=== PATIENT | female | born 1935 | race Caucasian/White ===

== ENCOUNTER 2016-11-16 19:05 | Inpatient (IN) | payer MEDICARE, OTHER ==
[~2016-11-16] VITALS: Ht 160 cm; Wt 67.1 kg
[2016-11-16] MEDS ORDERED: QUET50TA14 PO (19:45)
[2016-11-16] MEDS ORDERED: ACET-2154 PO (19:45)
[2016-11-16] MEDS ORDERED: MAG355OR18 PO (19:45)
[2016-11-16] MEDS ORDERED: CHOL500062 PO (19:45)
[2016-11-16] MEDS ORDERED: LAMO200T2 PO (19:45)
[2016-11-16] MEDS ORDERED: ESCI5TAB PO (19:45)
[2016-11-16] MEDS ORDERED: PHEN100C4 PO (19:45)
[2016-11-16] MEDS ORDERED: CALC-20 PO (19:45)
[2016-11-16] MEDS ORDERED: MAGN400O6 PO (19:45)
[2016-11-16] MEDS ORDERED: TRAZ-144 PO (19:45)
[2016-11-16] MEDS ORDERED: OMEG1CAP23 PO (19:45)
[2016-11-16 19:55] LABS: BASOPHILS # (AUTO) 0.1 K/uL (0.0-8.0); BASOPHILS % (AUTO) 1.4 % (0.0-2.0); EOSINOPHILS # (AUTO) 0.2 K/uL (0.0-0.7); HEMATOCRIT 41.2 % (37-47); HEMOGLOBIN 13.6 G/DL (12.0-16.0); LYMPHOCYTES # (AUTO) 2.2 K/UL (0.8-4.8); LYMPHOCYTES % (AUTO) 31.5 % (20.5-51.5); MEAN CORPUSCULAR HEMOGLOBIN 29.6 UUG (27.0-31.0); MEAN CORPUSCULAR HGB CONC 33 g/dL (32.0-37.0); MEAN CORPUSCULAR VOLUME 89.6 FL (81.0-99.0); MONOCYTES # (AUTO) 0.7 K/UL (0.1-1.30); MONOCYTES % (AUTO) 10.4 % (0.0-11.0); NEUTROPHILS # (AUTO) 3.9 K/UL (1.8-8.9); NEUTROPHILS % (AUTO) 53.7 % (38.5-71.5); PLATELET COUNT (AUTO) 291 K/UL (150-450); WHITE BLOOD COUNT (AUTO) 7.1 K/UL (4.0-11.2)
[2016-11-16] MEDS ORDERED: HYDROCODONE/APAP 5-325MG TABLET PO ONE (20:00)
[2016-11-16] MEDS ORDERED: diphenhydrAMINE 50 MG/1 ML VIAL IM ONE (20:00)
[2016-11-16] MEDS ORDERED: HYDROMORPHONE 1 MG/1 ML DISP.SYRIN IM ONE (20:00)
[2016-11-16] MEDS ORDERED: HYDROCODONE/APAP 10-325 MG TABLET ONE (20:06)
[2016-11-16 20:07] LABS: CARBON DIOXIDE 26 mmol/L (21-32); CHLORIDE 100 mmol/L (98-107); CREATININE 0.6 mg/dL (0.6-1.3); GLUCOSE 104 mg/dL (74-106); POTASSIUM 5.2 mmol/L (3.5-5.1); UREA NITROGEN, BLOOD 16 mg/dL (7-18)
[2016-11-16] MEDS ORDERED: HYDROMORPHONE 1 MG/1 ML DISP.SYRIN ONE (20:07)
[2016-11-16] MEDS ORDERED: diphenhydrAMINE 50 MG/1 ML VIAL ONE (20:11)
[2016-11-16 20:15] LABS: ETHANOL < 3 MG/DL (0-0)
[2016-11-16 20:21] LABS: THYROID STIMULATING HORMONE 1.016 mIU/mL (0.358-3.740)
[2016-11-16 20:22] LABS: ALANINE AMINOTRANSFERASE 21 U/L (14-59); ALKALINE PHOSPHATASE 151 U/L (50-136); ASPARTATE AMINOTRANSFERASE 33 U/L (15-37); BILIRUBIN,DIRECT < 0.1 mg/dL (0.0-0.2); BILIRUBIN,TOTAL 0.4 mg/dL (0.2-1.0); TOTAL PROTEIN, SERUM 7.5 g/dL (6.4-8.2)
[2016-11-16 20:23] LABS: ACETAMINOPHEN < 2.0 ug/mL (10-30)
--- NOTE | 2016-11-16 20:25 | NUR ---
Call placed to [facility] for [facility] evaluation, ETA 45 min.
[2016-11-16 22:09] LABS: *BILIRUBIN,URIN NEGATIVE (NEGATIVE); *BLOOD, URINE NEGATIVE (NEGATIVE); *CLARITY,URINE SLIGHTLY CLOUDY (CLEAR); *COLOR,URINE YELLOW (YELLOW); *KETONES,URINE NEGATIVE (NEGATIVE); *PROTEIN,URINE NEGATIVE (NEGATIVE); *UROBILINOGEN,URINE 0.2 E.U./dl (NORMAL); LEUKOCYTE ESTERASE ,URINE 1+ (NEGATIVE); NITRITE, URINE POSITIVE (NEGATIVE); UGLUCOSE NEGATIVE (NEGATIVE)
[2016-11-16 22:19] LABS: RBC,URINE 0-3 /HPF (0-3)
[2016-11-16 22:20] LABS: BACTERIA,URINE MODERATE /HPF (NONE SEEN); SQUAMOUS EPITHELIAL CELL,UR FEW /HPF (NONE SEEN); URINE AMORPHOUS URATE MODERATE /HPF
[2016-11-16 22:26] LABS: *AMPHETAMINE, URINE NEGATIVE (NEGATIVE); *BARBITURATE, URINE NEGATIVE (NEGATIVE); *CANNABINOID, URINE NEGATIVE (NEGATIVE); *COCCAINE, URINE NEGATIVE (NEGATIVE); *OPIATE, URINE NEGATIVE (NEGATIVE); *PHENCYCLIDINE SCREEN,URINE NEGATIVE (NEGATIVE)
[2016-11-16] MEDS ORDERED: CLONAZEPAM 0.5 MG TABLET PO PRN (22:30)
[2016-11-16] MEDS ORDERED: TEMAZEPAM 7.5 MG CAPSULE PO PRN (22:30)
[2016-11-16] MEDS ORDERED: MAG HYDROX/AL HYDROX/SIMETH 30 ML LIQUID UDC PO PRN (22:30)
--- NOTE | 2016-11-16 22:31 | NUR ---
Pt. admitted to [facility], under care of Dr. Pedraza Belongs List completed
--- NOTE | 2016-11-17 00:11 | NUR ---
PATIENT RECEIVED FROM ER @ 2230 VIA [facility], PATIENT ALERT/ORIENTED X1 NAME ONLY. PATIENT CONFUSED, DISORGANIZED. PATIENT HAS POOR JUDGEMENT, POOR IMPULSE CONTROL, POOR SAFETY AWARENESS. PATIENT HAS FLAT AFFECT, GUARDED, SUSPICIOUS, EASILY AGITATED, AND EASILY IRRITABLE. PATIENT HAS HISTORY OF FALL, BED IN LOWEST POSITION, BED LOCKED, AND BED ALARM ON WHILE IN BED. SKIN NOTED WITH BRUISE TO FOREHEAD, RIGHT WRIST BRUISE, RIGHT PINKY BRUISE, RIGHT LOWER LEG BRUISE. PATIENT RECEIVED PATIENT RIGHT'S HANDBOOK, AND ADVISEMENT AT BEDSIDE. PATIENT UNABLE TO ANSWER QUESTIONS DUE TO CONFUSION, AND UNABLE TO SIGN ADMISSION PAPERS. PATIENT DENIES PAIN , NO FACIAL GRIMACING NOTED WILL CONTINUE TO MONITOR.
[2016-11-17 00:18] VITALS: BP 136/65
[2016-11-17 07:30] VITALS: BP 142/49
[2016-11-17] MEDS: ESCITALOPRAM OXALATE 10 MG TABLET PO SCH (14:30)
[2016-11-17 16:36] VITALS: BP 146/65
[2016-11-17] MEDS: QUETIAPINE FUMARATE 25 MG TABLET PO SCH (18:02)
[2016-11-17] MEDS ORDERED: CLONAZEPAM 1 MG TABLET PO PRN (18:45)
[2016-11-17] MEDS: TRAZODONE 50 MG TABLET PO SCH (20:27)
[2016-11-17 20:35] VITALS: BP 142/56
[2016-11-18] MEDS ORDERED: LORAZEPAM 2 MG/1 ML VIAL IM ONE
[2016-11-18] MEDS ORDERED: LORAZEPAM 2 MG/1 ML VIAL ONE (00:04)
[2016-11-18] MEDS ORDERED: OLANZAPINE 10 MG VIAL IM ONE ×2 (00:05)
--- NOTE | 2016-11-18 00:38 | NUR ---
On 11/17/16 at approx 2355, patient noted agitative, combative refusing care yelling and screaming, attempting to hit staff and unable to stay in bed or cayla chair. Restoril 7.5mg PO PRN for insomnia was offered, however, patient refused. Verbal redirection given; however, ineffective. she continue with agitation, combative, yelling and screaming and refusing care. Dr Pedraza was notified at 0001 and new order were obtained to administer Zyprexa 5mg IM and Ativan 1mg IM stat order one time only. Ativan was given IM on right deltoid and Zyprexa given on left deltoid IM at 0006. We will continue to monitor patient.
[2016-11-18] MEDS ORDERED: MAG HYDROX/AL HYDROX/SIMETH 30 ML LIQUID UDC PO PRN (07:45)
[2016-11-18] MEDS ORDERED: MAGNESIUM HYDROXIDE 30 ML LIQUID UDC PO PRN (07:45)
[2016-11-18] MEDS ORDERED: ACETAMINOPHEN 325 MG TABLET PO PRN (07:45)
[2016-11-18] MEDS ORDERED: PHENYTOIN SODIUM EXTENDED 100 MG CAPSULE.SA PO SCH (09:00)
[2016-11-18] MEDS: QUETIAPINE FUMARATE 25 MG TABLET PO SCH (09:44)
[2016-11-18] MEDS: LAMOTRIGINE 100 MG TABLET PO SCH ×2 (09:44→18:10)
[2016-11-18] MEDS: ESCITALOPRAM OXALATE 10 MG TABLET PO SCH (09:45)
--- NOTE | 2016-11-18 10:00 | NUR ---
PT IS AGITATED AND DISORIENTED, BANGS ON THE TABLE AND ATTEMPTS TO STRIKE OUT WHEN APPROACHED. TOOK MULTIPLE PEOPLE TO CHANGE A DIAPER. PT IS RESTLESS WHEN IN BED AND CONSTANTLY ATTEMPTS TO CLIMB OUT OF THE BED. PT IS NOT COHERENT. PT IS DISROBBING WHEN IN BED. ATTEMPTED TO ASSESS COCCYX AREA, BUT PT IS COMBATIVE AND DOES NOT ALLOW CARE AT THIS TIME.
--- NOTE | 2016-11-18 13:09 | NUR ---
GPS/RN- Dr Shawn No here to see patient, discussed patient current Dilantin level today 5.3 low, below therapeutic level. orders received to increase Dilantin 100mg BID to TID, orders repeated back to
--- NOTE | 2016-11-18 14:50 | NUR ---
Initial discharge instructions: Pt resides at [facility] [[address],[address];[phone]].Per pt's daughter-Wesly Nielson [phone],she would like the pt to return there upon discharge.Spoke with Mine who stated the pt may not return to the facility.SW will speak with pt,daughter,and MD regarding appropriate discharge plans.SW will form a safe and proper discharge.
[2016-11-18 16:00] VITALS: BP 136/77
[2016-11-18] MEDS: CEPHALEXIN MONOHYDRATE 500 MG CAPSULE PO SCH (18:10)
[2016-11-18] MEDS: PHENYTOIN SODIUM EXTENDED 100 MG CAPSULE.SA PO SCH (18:10)
[2016-11-18 20:11] VITALS: BP 108/67
[2016-11-18] MEDS: TRAZODONE 50 MG TABLET PO SCH (21:00)
[2016-11-18] MEDS: OLANZAPINE ZYDIS 5 MG TAB.RAPDIS PO SCH (21:00)
--- NOTE | 2016-11-19 07:02 | NUR ---
SMALL SKIN BREAKDOWN NOTED TO SACRAL/COCCYX AREA, APPROXIMATELY 2x2cm. PREVIOUS SHIFT STATED Pt WAS TOO COMBATIVE AND AGGRESSIVE TO ASSESS THE SACRAL AREA. A TEAM OF FIVE STAFF WAS REQUIRED TO PROVIDE CARE AND CHANGE THE Pt's DIAPER. Z GUARD ORDERED AND APPLIED. WOUND CARE CONSULT ORDERED. PHOTO TAKEN AND PLACED IN CHART.
[2016-11-19] MEDS ORDERED: Z GUARD REMEDY PASTE 57 GM TUBE TOP SCH (07:15)
[2016-11-19 07:30] VITALS: BP 112/60
[2016-11-19] MEDS: PHENYTOIN SODIUM EXTENDED 100 MG CAPSULE.SA PO SCH ×3 (10:33→17:47)
[2016-11-19] MEDS: CEPHALEXIN MONOHYDRATE 500 MG CAPSULE PO SCH ×2 (10:33→17:47)
[2016-11-19] MEDS: ESCITALOPRAM OXALATE 10 MG TABLET PO SCH (10:33)
[2016-11-19] MEDS: LAMOTRIGINE 100 MG TABLET PO SCH ×2 (10:33→18:26)
[2016-11-19] MEDS: ACETAMINOPHEN 325 MG TABLET PO PRN (10:49)
[2016-11-19] MEDS ORDERED: HYDROCODONE/APAP 5-325MG TABLET PO PRN (13:15)
[2016-11-19 16:00] VITALS: BP 119/60
--- NOTE | 2016-11-19 17:00 | NUR ---
PT IS INDEPENDENT WITH REPOSITIONING. DOES NOT STAY ON ONE SIDE REPOSITIONED. EXPLAINED TO THE PT OFFLOADING PROCEDURE, PT IS FORGETFUL AND DISORIENTED. WILL CONTINUE TO MONITOR SKIN FOR BREAK DOWNS.
[2016-11-19] MEDS: TRAZODONE 50 MG TABLET PO SCH (20:57)
[2016-11-19] MEDS: OLANZAPINE ZYDIS 5 MG TAB.RAPDIS PO SCH (20:57)
[2016-11-19] MEDS: Z GUARD REMEDY PASTE 57 GM TUBE TOP SCH (21:06)
[2016-11-20 07:30] VITALS: BP 116/64
[2016-11-20] MEDS: LAMOTRIGINE 100 MG TABLET PO SCH ×2 (09:39→17:18)
[2016-11-20] MEDS: ESCITALOPRAM OXALATE 10 MG TABLET PO SCH (09:39)
[2016-11-20] MEDS: PHENYTOIN SODIUM EXTENDED 100 MG CAPSULE.SA PO SCH ×3 (09:40→17:18)
[2016-11-20] MEDS: ACETAMINOPHEN 325 MG TABLET PO PRN (09:40)
[2016-11-20] MEDS: Z GUARD REMEDY PASTE 57 GM TUBE TOP SCH ×2 (09:40→20:51)
[2016-11-20] MEDS: CEPHALEXIN MONOHYDRATE 500 MG CAPSULE PO SCH ×2 (09:40→17:18)
--- NOTE | 2016-11-20 11:44 | NUR ---
WOUND CARE CONSULT PATIENT SEEN AND SKIN INTEGRITY ASSESSMENT DONE. PATIENT PRESENTS WITH A STAGE 2 PRESSURE ULCER TO THE GLUTEAL CREASE/PRE-SACRAL AREA. TMT RECOMMENDATIONS MADE AND MD IN AGREEMENT. ALL DISCUSSED WITH NURSING STAFF AT THE BEDSIDE. PATIENT IS NOW ABLE TO ASSIST WITH TURNING, BUT DOES NEED PROMPTING AND ASSIST. RECOMMEND TURNING SCHED Q 2 HOURS PATIENT CONDITONS PERMITS, BILATERAL HEEL FLOATING, CONTINUED USE OF Z GUARD FOR MOISTURE MANAGMENT. Addendum: 11/20/16 at 1147 by SUNITHA YEUNG WNDNU Amended: Links added.
[2016-11-20 15:00] VITALS: BP 131/64
[2016-11-20] MEDS: TRAZODONE 50 MG TABLET PO SCH (20:17)
[2016-11-20] MEDS: OLANZAPINE ZYDIS 5 MG TAB.RAPDIS PO SCH (20:17)
[2016-11-20 20:52] VITALS: BP 117/70
[2016-11-21 07:30] VITALS: BP 108/53
[2016-11-21] MEDS: PHENYTOIN SODIUM EXTENDED 100 MG CAPSULE.SA PO SCH ×3 (08:15→17:22)
[2016-11-21] MEDS: ESCITALOPRAM OXALATE 10 MG TABLET PO SCH (08:15)
[2016-11-21] MEDS: CEPHALEXIN MONOHYDRATE 500 MG CAPSULE PO SCH ×2 (08:15→17:22)
[2016-11-21] MEDS: LAMOTRIGINE 100 MG TABLET PO SCH ×2 (08:15→17:22)
[2016-11-21] MEDS: Z GUARD REMEDY PASTE 57 GM TUBE TOP SCH ×2 (08:16→22:11)
[2016-11-21 16:58] VITALS: BP 113/60
[2016-11-21 20:00] VITALS: BP 111/61
[2016-11-21] MEDS: OLANZAPINE ZYDIS 5 MG TAB.RAPDIS PO SCH (22:12)
[2016-11-21] MEDS: TRAZODONE 50 MG TABLET PO SCH (22:12)
[2016-11-22 07:30] VITALS: BP 132/64
[2016-11-22] MEDS: PHENYTOIN SODIUM EXTENDED 100 MG CAPSULE.SA PO SCH ×3 (09:13→16:32)
[2016-11-22] MEDS: LAMOTRIGINE 100 MG TABLET PO SCH ×2 (09:14→16:33)
[2016-11-22] MEDS: CEPHALEXIN MONOHYDRATE 500 MG CAPSULE PO SCH ×2 (09:14→16:33)
[2016-11-22] MEDS: ESCITALOPRAM OXALATE 10 MG TABLET PO SCH (09:16)
[2016-11-22] MEDS: Z GUARD REMEDY PASTE 57 GM TUBE TOP SCH ×2 (09:21→20:55)
[2016-11-22 16:00] VITALS: BP 140/73
[2016-11-22] MEDS: OLANZAPINE ZYDIS 5 MG TAB.RAPDIS PO SCH (16:33)
[2016-11-22 20:15] VITALS: BP 139/74
[2016-11-22] MEDS: TRAZODONE 50 MG TABLET PO SCH (20:31)
--- NOTE | 2016-11-22 22:00 | NUR ---
pt received in her room laying in bed awake, mildly anxious and restless. cooperative with care, took all meds as ordered, will continue to monitor closely.
[2016-11-23 08:30] VITALS: BP 136/63
[2016-11-23] MEDS: PHENYTOIN SODIUM EXTENDED 100 MG CAPSULE.SA PO SCH ×3 (09:12→16:49)
[2016-11-23] MEDS: CEPHALEXIN MONOHYDRATE 500 MG CAPSULE PO SCH ×2 (09:15→16:49)
[2016-11-23] MEDS: LAMOTRIGINE 100 MG TABLET PO SCH ×2 (09:15→16:50)
[2016-11-23] MEDS: OLANZAPINE ZYDIS 5 MG TAB.RAPDIS PO SCH ×2 (09:16→16:51)
[2016-11-23] MEDS: ESCITALOPRAM OXALATE 10 MG TABLET PO SCH (09:16)
[2016-11-23] MEDS: Z GUARD REMEDY PASTE 57 GM TUBE TOP SCH ×2 (09:17→20:50)
[2016-11-23 16:02] VITALS: BP 102/57
--- NOTE | 2016-11-23 17:33 | NUR ---
Patient visible in dayroom after lunch watching tv with peers, interacts with selected peer, calm and cooperative, no c/o pain or discomfort noted, dressing changed done on sacral area, kept clean ,dry, no s/s of infection noted. Medication compliant and cooperative, no episode of fall noted. Will continue to monitor for safety and needs.
[2016-11-23] MEDS: TRAZODONE 50 MG TABLET PO SCH (20:50)
[2016-11-23 21:00] VITALS: BP 105/63
[2016-11-24 07:30] VITALS: BP 159/98
[2016-11-24 07:54] LABS: CARBON DIOXIDE 28 mmol/L (21-32); CHLORIDE 105 mmol/L (98-107); CREATININE 0.6 mg/dL (0.6-1.3); GLUCOSE 105 mg/dL (74-106); POTASSIUM 4.6 mmol/L (3.5-5.1); UREA NITROGEN, BLOOD 18 mg/dL (7-18)
[2016-11-24] MEDS: ESCITALOPRAM OXALATE 10 MG TABLET PO SCH (08:51)
[2016-11-24] MEDS: PHENYTOIN SODIUM EXTENDED 100 MG CAPSULE.SA PO SCH ×3 (08:52→16:24)
[2016-11-24] MEDS: LAMOTRIGINE 100 MG TABLET PO SCH ×2 (08:53→16:24)
[2016-11-24] MEDS: OLANZAPINE ZYDIS 5 MG TAB.RAPDIS PO SCH ×2 (08:53→16:25)
[2016-11-24] MEDS: MAGNESIUM HYDROXIDE 30 ML LIQUID UDC PO PRN (08:55)
[2016-11-24] MEDS: Z GUARD REMEDY PASTE 57 GM TUBE TOP SCH ×2 (08:59→20:15)
[2016-11-24 17:00] VITALS: BP 131/72
[2016-11-24 20:00] VITALS: BP 105/63
[2016-11-24] MEDS: TRAZODONE 50 MG TABLET PO SCH (20:12)
--- NOTE | 2016-11-24 21:42 | NUR ---
pt received in her room laying in bed quiet, noted to be slow in response, may be hard of hearing, no behavioral problem noted, took meds as ordered, will continue to monitor closely.
[2016-11-25 08:00] VITALS: BP 138/79
[2016-11-25] MEDS: ESCITALOPRAM OXALATE 10 MG TABLET PO SCH (08:30)
[2016-11-25] MEDS: LAMOTRIGINE 100 MG TABLET PO SCH ×2 (08:30→16:34)
[2016-11-25] MEDS: Z GUARD REMEDY PASTE 57 GM TUBE TOP SCH ×2 (08:30→20:15)
[2016-11-25] MEDS: OLANZAPINE ZYDIS 5 MG TAB.RAPDIS PO SCH ×2 (08:30→16:34)
[2016-11-25] MEDS: PHENYTOIN SODIUM EXTENDED 100 MG CAPSULE.SA PO SCH ×3 (08:30→16:34)
--- NOTE | 2016-11-25 15:50 | NUR ---
WOUND TREATMENT DONE ORDERED. TOLERATED WELL. NO C/O PAIN. HEALING GOOD.
[2016-11-25 16:00] VITALS: BP 156/86
[2016-11-25] MEDS: TRAZODONE 50 MG TABLET PO SCH (20:15)
[2016-11-25 20:20] VITALS: BP 118/69
[2016-11-26] MEDS: MAGNESIUM HYDROXIDE 30 ML LIQUID UDC PO PRN (06:32)
[2016-11-26] MEDS: LAMOTRIGINE 100 MG TABLET PO SCH (08:22)
[2016-11-26] MEDS: PHENYTOIN SODIUM EXTENDED 100 MG CAPSULE.SA PO SCH ×2 (08:23→12:58)
[2016-11-26] MEDS: ESCITALOPRAM OXALATE 10 MG TABLET PO SCH (08:23)
[2016-11-26] MEDS: OLANZAPINE ZYDIS 5 MG TAB.RAPDIS PO SCH (08:24)
[2016-11-26] MEDS: Z GUARD REMEDY PASTE 57 GM TUBE TOP SCH (08:29)
--- NOTE | 2016-11-26 10:41 | NUR ---
DC Note: Patient will be discharged to [facility] [[address] [place] [id number]; ] via ambulance at 12:00 pm. Spoke with Yahaira at the facility who stated they would accept the patient today. Spoke with patients daughter, Wesly Nielson [phone] who is aware and agreeable with discharge plans. Spoke with Mine at [facility] and informed her of the patients discharge plans, in order to transport her belongings to the new facility. Patient will follow-up with (Psychiatrist) and (Professor Of Theology) at the facility.
== END 2016-11-26 14:40 | DRG 885 ==
LOC: ER 19:06 → GPS 22:26
PROVIDERS: ADMIT Psychiatry & Neurology Psychiatry
DX: F32.3 Major depressive disorder, single episode, severe with psychotic features (principal); F02.80 Dementia in other diseases classified elsewhere, unspecified severity, without behavioral disturbance, psychotic disturbance, mood disturbance, and anxiety; G20 Parkinson's disease; G30.9 Alzheimer's disease, unspecified; Z91.81 History of falling; J44.9 Chronic obstructive pulmonary disease, unspecified; F20.0 Paranoid schizophrenia; K44.9 Diaphragmatic hernia without obstruction or gangrene; M19.012 Primary osteoarthritis, left shoulder; Z90.49 Acquired absence of other specified parts of digestive tract; Z66 Do not resuscitate; Z79.899 Other long term (current) drug therapy; I10 Essential (primary) hypertension; H91.90 Unspecified hearing loss, unspecified ear; G40.909 Epilepsy, unspecified, not intractable, without status epilepticus; G62.9 Polyneuropathy, unspecified; Z88.0 Allergy status to penicillin
CPT/HCPCS: 36415; 70030-TC; 70450; 71010; 71250; 73030; 73200; 80307; 83605; 84443; 85025; 85730; 87040; 87086; 93005; 97116; 97161; 97530; A4663; G0480; G0480-TC; J1170; J1200; J2060; J2358